=== PATIENT | female | born 1935 | race Caucasian/White ===

== ENCOUNTER 2017-11-29 19:28 | Emergency (ER) | payer OTHER ==
[~2017-11-29] VITALS: Ht 157.5 cm; Wt 59.0 kg
[~2017-11-29 19:28] MED LIST: HYDCOR2.5B TOP; Naproxen375 M1 PO; TRIE10TC; VIT1CAPS12 PO
[2017-11-29] MEDS ORDERED: Keflex500 MG PO (23:12)
[2017-11-29 23:14] LABS: Source, Urine Catheter
[2017-11-29 23:19] LABS: Bilirubin, Urine Neg (Neg); Blood, Urine 3+ (Neg); Glucose Qualitative, Urine Neg (Neg); Ketones, Urine Neg (Neg); Leukocyte Esterase, Urine 3+ (Neg); Nitrite, Urine Pos (Neg); Protein, Urine 2+ (Neg); Specific Gravity, Urine 1.015 (1.003-1.022); Urobilinogen, Urine NORM (Normal)
[2017-11-29 23:22] LABS: Appearance, Urine Hazy (Clear); Color, Urine Yellow (P-Yellow)
[2017-11-29 23:28] LABS: Bacteria Many /hpf; Red Blood Cells, Urine 0-2 /hpf (0-2); Squamous Epithelial Cells Not Seen /hpf (Few); White Blood Cells, Urine TNTC /hpf (0-5)
== END 2017-11-30 00:48 | disposition home or self-care (01) ==
LOC: ER 19:28
PROVIDERS: Emergency Medicine
DX: N39.0 Urinary tract infection, site not specified (principal); Z79.899 Other long term (current) drug therapy; F03.90 Unspecified dementia, unspecified severity, without behavioral disturbance, psychotic disturbance, mood disturbance, and anxiety; Z87.891 Personal history of nicotine dependence
CPT/HCPCS: 51701; 81001; 87077; 87086; 87186; 99283

== ENCOUNTER → 2017-12-21 | Outpatient (CLI) | payer OTHER ==
[~2017-12-21] MED LIST changes: +Keflex500 MG PO
[2017-12-21 13:36] LABS: Alanine Aminotransfer (ALT/SGP 35 U/L (12-78); Albumin, Blood 3.2 g/dL (3.4-5.0); Albumin/Globulin Ratio 0.7 (0.8-1.8); Alk Phos 161 U/L (50-136); Anion Gap 9 mmol/L (6-16); Aspartate Aminotrans (AST/SGOT 41 U/L (12-37); Bilirubin, Total 0.4 mg/dL (0.1-1.0); Blood Urea Nitrogen 16 mg/dL (8-24); Bun/Creatinine Ratio 26.1 (12.0-20.0); CO2, Blood 28 mmol/L (21-32); Calcium, Blood 8.3 mg/dL (8.5-10.1); Chloride, Blood 103 mmol/L (98-108); Creatinine, Blood 0.61 mg/dL (0.40-1.00); Free Thyroxine 1.02 ng/dL (0.70-1.60); Globulin, Blood 4.4 g/dL (2.2-4.0); Glomerular Filtration Rate >60 (60-); Glucose, Blood 112 mg/dL (70-99); Potassium, Blood 3.8 mmol/L (3.5-5.5); Sodium, Blood 140 mmol/L (136-145); Total Protein, Blood 7.6 g/dL (6.4-8.2)
== END | disposition home or self-care (01) ==
LOC: LAB 10:01
PROVIDERS: Hospitalist
DX: E03.9 Hypothyroidism, unspecified (principal)
CPT/HCPCS: 80053; 84439; 84443

== ENCOUNTER → 2018-03-13 | Outpatient (CLI) | payer OTHER ==
[2018-03-13 12:50] LABS: Bilirubin, Urine Neg (Neg); Blood, Urine 1+ (Neg); Glucose Qualitative, Urine Neg (Neg); Ketones, Urine Neg (Neg); Leukocyte Esterase, Urine 3+ (Neg); Nitrite, Urine Pos (Neg); Protein, Urine 2+ (Neg); Urobilinogen, Urine NORM (Normal)
[2018-03-13 13:19] LABS: Appearance, Urine Cloudy (Clear); Color, Urine Yellow (P-Yellow)
[2018-03-13 13:21] LABS: White Blood Cells, Urine 50-100 /hpf (0-5)
[2018-03-13 13:24] LABS: Bacteria Few /hpf
[2018-03-13 13:25] LABS: Renal Epithelial Rare /hpf (0-Rare); Squamous Epithelial Cells Rare /hpf (Few)
== END | disposition home or self-care (01) ==
LOC: LAB SHORT 10:45
PROVIDERS: Hospitalist
DX: N39.0 Urinary tract infection, site not specified (principal)
CPT/HCPCS: 81001; 87077; 87086; 87186

== ENCOUNTER → 2018-10-16 | Outpatient (CLI) | payer OTHER ==
[~2018-10-16] MED LIST changes: +LEVSOD50 PO; +MELA3 PO; +MIRT15 PO; +NAPR500 PO; +Refresh Eye Dr1 EACH BOTHEYES
[2018-10-16 19:27] LABS: Appearance, Urine Hazy (Clear); Bilirubin, Urine Neg (Neg); Blood, Urine 5+ (Neg); Color, Urine Yellow (P-Yellow); Glucose Qualitative, Urine Neg (Neg); Ketones, Urine 1+ (Neg); Leukocyte Esterase, Urine 3+ (Neg); Nitrite, Urine Pos (Neg); Protein, Urine 2+ (Neg); Urobilinogen, Urine NORM (Normal)
[2018-10-16 19:45] LABS: White Blood Cells, Urine 25-50 /hpf (0-5)
[2018-10-16 19:46] LABS: Bacteria Many /hpf; Squamous Epithelial Cells Rare /hpf (Few)
== END | disposition home or self-care (01) ==
LOC: LAB SHORT 18:53 → LAB 18:53
PROVIDERS: Hospitalist
DX: N39.0 Urinary tract infection, site not specified (principal)
CPT/HCPCS: 81001; 87077; 87086; 87186

== ENCOUNTER 2018-11-23 13:05 | Inpatient (IN) | payer OTHER ==
[~2018-11-23] VITALS: Ht 154.9 cm; Wt 49.0 kg
[~2018-11-23 13:05] MED LIST changes: -LEVSOD50 PO; -MELA3 PO; -MIRT15 PO; -NAPR500 PO; -Refresh Eye Dr1 EACH BOTHEYES
[2018-11-23] MEDS ORDERED: LEVSOD50 PO (13:21)
[2018-11-23] MEDS ORDERED: MIRT15 PO (13:22)
[2018-11-23] MEDS ORDERED: MELA3 PO (13:22)
[2018-11-23] MEDS ORDERED: NAPR500 PO (13:23)
[2018-11-23 14:16] LABS: BASOPHILS ABSOLUTE AUTO 0.04 K/mm3 (0.00-0.23); BASOPHILS PERCENT AUTO 1 % (0-2); EOSINOPHILS ABSOLUTE AUTO 0.03 K/mm3 (0.00-0.68); EOSINOPHILS PERCENT AUTO 1 % (0-6); Hematocrit 39.6 % (33.0-51.0); Hemoglobin 12.4 g/dL (11.5-16.0); IMMATURE GRAN ABSOLUTE AUTO 0.07 K/mm3 (0.00-0.10); IMMATURE GRAN PERCENT AUTO 1 % (0-1); LYMPHOCYTES ABSOLUTE AUTO 1.44 K/mm3 (0.84-5.20); LYMPHOCYTES PERCENT AUTO 28 % (21-46); MONOCYTES ABSOLUTE AUTO 0.58 K/mm3 (0.16-1.47); MONOCYTES PERCENT AUTO 11 % (4-13); Mean Corpuscular HGB 30.2 pg (26.0-34.0); Mean Corpuscular HGB Conc 31.3 g/dL (31.5-36.5); Mean Corpuscular Volume 96 fL (80-100); Mean Platelet Volume 10.8 fL (9.1-12.4); NEUTROPHILS ABSOLUTE AUTO 2.99 K/mm3 (1.96-9.15); NEUTROPHILS PERCENT AUTO 58 % (41-73); Platelet Count 212 K/mm3 (150-400); RDW Coefficient Variation 14.8 % (11.7-14.2); RDW Standard Deviation 52.8 fL (35.1-46.3); Red Blood Cell Count 4.11 M/mm3 (3.80-5.20); White Blood Cell Count 5.15 K/mm3 (4.00-11.30)
[2018-11-23 15:10] LABS: Alanine Aminotransfer (ALT/SGP 75 U/L (12-78); Albumin, Blood 3.5 g/dL (3.4-5.0); Albumin/Globulin Ratio 1.1 (0.8-1.8); Alk Phos 64 U/L (50-136); Anion Gap 6 mmol/L (6-16); Aspartate Aminotrans (AST/SGOT 54 U/L (12-37); Bilirubin, Total 0.7 mg/dL (0.1-1.0); Blood Urea Nitrogen 20 mg/dL (8-24); Bun/Creatinine Ratio 26.5 (12.0-20.0); CO2, Blood 31 mmol/L (21-32); Calcium, Blood 8.1 mg/dL (8.5-10.1); Chloride, Blood 106 mmol/L (98-108); Creatinine, Blood 0.76 mg/dL (0.40-1.00); Globulin, Blood 3.3 g/dL (2.2-4.0); Glomerular Filtration Rate >60 (60-); Glucose, Blood 138 mg/dL (70-99); Potassium, Blood 3.7 mmol/L (3.5-5.5); Sodium, Blood 143 mmol/L (136-145); Total Protein, Blood 6.8 g/dL (6.4-8.2)
[2018-11-23] MEDS ORDERED: Refresh Eye Dr1 EACH BOTHEYES (16:48)
--- NOTE | 2018-11-23 18:41 | NUR ---
SUMMARY PT ARRIVED TO UNIT FROM ER THIS AFTERNOON. RLE SHORTENED AND EXTERNALLY ROTATED. PT RESTING RUE ACROSS CHEST. DAUGHTER TO FLOOR W/PT. LOVING AND ATTENTIVE. PT FORGETFUL/HAS DEMENTIA. DR LOVE IN THIS EVENING. SURGICAL CONSENT SIGNED. PLAN FOR SURGERY TOMORROW AM. BED ALARM ON. STUART CATH DRAINING CLOUDY YELLOW URINE.
--- NOTE | 2018-11-23 18:45 | NUR ---
recvd report from previous shift rn minerva, pt in bed with bed alarm on, call light within reach, bed in lowest position, daughter in room, pt confused per baseline
[2018-11-23 18:52] LABS: Source, Urine Catheter
[2018-11-23 19:00] LABS: Appearance, Urine Cloudy (Clear); Bilirubin, Urine Neg (Neg); Blood, Urine 5+ (Neg); Color, Urine Yellow (P-Yellow); Glucose Qualitative, Urine Neg (Neg); Ketones, Urine 3+ (Neg); Leukocyte Esterase, Urine 3+ (Neg); Nitrite, Urine Pos (Neg); Protein, Urine 2+ (Neg); Specific Gravity, Urine 1.015 (1.003-1.022); Urobilinogen, Urine 1+ (Normal)
[2018-11-23 19:05] LABS: Bacteria Many /hpf; Squamous Epithelial Cells Not Seen /hpf (Few); White Blood Cells, Urine TNTC /hpf (0-5)
--- NOTE | 2018-11-24 04:36 | NUR ---
SHIFT SUMMARY: VSS, NO ACUTE CHANGES, PT REMAINED NPO AFTER 0000, IV FLUIDS INFUSING. PT REPOSITIONED Q2 T/O SHIFT, STUART REMAINED PATENT/DRAINING DARK YELLOW URINE. PT RECEIVED ANALGESIA PER MAR, WAS ABLE TO FALL ASLEEP BETWEEN ADMINISTRATIONS. PULSES/WARMTH/COLOR TO AFFECTED LIMB INTACT. PT REMAINED CONFUSED PER HER HER BASELINE, COOPERATIVE/PLEASANT.
[2018-11-24 04:50] LABS: BASOPHILS ABSOLUTE AUTO 0.02 K/mm3 (0.00-0.23); BASOPHILS PERCENT AUTO 0 % (0-2); EOSINOPHILS PERCENT AUTO 0 % (0-6); Hemoglobin 10.1 g/dL (11.5-16.0); IMMATURE GRAN ABSOLUTE AUTO 0.03 K/mm3 (0.00-0.10); IMMATURE GRAN PERCENT AUTO 0 % (0-1); LYMPHOCYTES ABSOLUTE AUTO 1.32 K/mm3 (0.84-5.20); LYMPHOCYTES PERCENT AUTO 14 % (21-46); MONOCYTES ABSOLUTE AUTO 0.86 K/mm3 (0.16-1.47); MONOCYTES PERCENT AUTO 9 % (4-13); Mean Corpuscular HGB 29.8 pg (26.0-34.0); Mean Corpuscular HGB Conc 31.6 g/dL (31.5-36.5); Mean Corpuscular Volume 94 fL (80-100); Mean Platelet Volume 11.3 fL (9.1-12.4); NEUTROPHILS ABSOLUTE AUTO 7.36 K/mm3 (1.96-9.15); NEUTROPHILS PERCENT AUTO 77 % (41-73); Platelet Count 172 K/mm3 (150-400); RDW Coefficient Variation 14.9 % (11.7-14.2); RDW Standard Deviation 52.2 fL (35.1-46.3); Red Blood Cell Count 3.39 M/mm3 (3.80-5.20); White Blood Cell Count 9.59 K/mm3 (4.00-11.30)
[2018-11-24 05:12] LABS: Anion Gap 7 mmol/L (6-16); Blood Urea Nitrogen 25 mg/dL (8-24); Bun/Creatinine Ratio 32.4 (12.0-20.0); CO2, Blood 26 mmol/L (21-32); Calcium, Blood 8.2 mg/dL (8.5-10.1); Chloride, Blood 109 mmol/L (98-108); Creatinine, Blood 0.77 mg/dL (0.40-1.00); Glomerular Filtration Rate >60 (60-); Glucose, Blood 122 mg/dL (70-99); Potassium, Blood 3.9 mmol/L (3.5-5.5); Sodium, Blood 142 mmol/L (136-145)
--- NOTE | 2018-11-24 11:50 | NUR ---
PT ARRIVED BACK TO THE ROOM POST-OP AT APPROXIMATELY 1140. PT IS DROWSY BUT AWAKENS WHEN SPOKEN TO AND FOLLOWS DIRECTIONS. DRESSING TO R HIP C/D/I. PT APPEARS TO BE RESTING COMFORTABLY AND DENIES PAIN. VSS. WILL MONITOR UNTIL REPORT TO ONCOMING RN.
--- NOTE | 2018-11-24 17:21 | NUR ---
SHIFT SUMMARY PT HAS RESTED COMFORTABLY POST-OP. VSS. FAMILY HAS BEEN AT THE BEDSIDE. WILL MONITOR UNTIL REPORT TO ONCOMING RN.
[2018-11-25 04:51] LABS: BASOPHILS ABSOLUTE AUTO 0.03 K/mm3 (0.00-0.23); BASOPHILS PERCENT AUTO 0 % (0-2); EOSINOPHILS ABSOLUTE AUTO 0.01 K/mm3 (0.00-0.68); EOSINOPHILS PERCENT AUTO 0 % (0-6); Hematocrit 24.9 % (33.0-51.0); Hemoglobin 7.9 g/dL (11.5-16.0); IMMATURE GRAN ABSOLUTE AUTO 0.04 K/mm3 (0.00-0.10); IMMATURE GRAN PERCENT AUTO 0 % (0-1); LYMPHOCYTES ABSOLUTE AUTO 2.42 K/mm3 (0.84-5.20); LYMPHOCYTES PERCENT AUTO 20 % (21-46); MONOCYTES ABSOLUTE AUTO 1.45 K/mm3 (0.16-1.47); MONOCYTES PERCENT AUTO 12 % (4-13); Mean Corpuscular HGB 30.6 pg (26.0-34.0); Mean Corpuscular HGB Conc 31.7 g/dL (31.5-36.5); Mean Platelet Volume 11.1 fL (9.1-12.4); NEUTROPHILS PERCENT AUTO 68 % (41-73); Platelet Count 126 K/mm3 (150-400); RDW Coefficient Variation 14.9 % (11.7-14.2); RDW Standard Deviation 52.8 fL (35.1-46.3); Red Blood Cell Count 2.58 M/mm3 (3.80-5.20); White Blood Cell Count 12.25 K/mm3 (4.00-11.30)
[2018-11-25 04:53] LABS: Mean Corpuscular Volume 97 fL (80-100)
[2018-11-25 05:21] LABS: Magnesium, Blood 1.8 mg/dL (1.6-2.4)
[2018-11-25 05:22] LABS: Anion Gap 8 mmol/L (6-16); Blood Urea Nitrogen 15 mg/dL (8-24); CO2, Blood 25 mmol/L (21-32); Calcium, Blood 7.7 mg/dL (8.5-10.1); Chloride, Blood 109 mmol/L (98-108); Creatinine, Blood 0.65 mg/dL (0.40-1.00); Glomerular Filtration Rate >60 (60-); Glucose, Blood 117 mg/dL (70-99); Potassium, Blood 4.2 mmol/L (3.5-5.5); Sodium, Blood 142 mmol/L (136-145)
--- NOTE | 2018-11-25 05:22 | NUR ---
LYING IN SEMI FOWLERS WITH EYES CLOSED. HAD DENIED PAIN EACH TIME SHE HAS BEEN ASKED. FREQUENTLY REPOSITIONED FOR COMFORT, CONTINUES TO END UP LEANING TO HER RIGHT. RIGHT ARM IN SLING, GOOD DISTAL PULSES NOTED. RIGHT HIP DRESSING IS C/D/I WITH GOOD DISTAL PULSES NOTED. LEFT AC 20G PIV NOTED HAVING BEEN WORKED LOOSE WITH CATH TIP INTACT. DENIES FUTHER NEEDS AT THIS TIME. SAFETY MEASURES IN PLACE. WILL GIVE HAND OFF TO ONCOMING SHIFT USING SBAR.
--- NOTE | 2018-11-25 06:15 | NUR ---
STUART CATH REMOVED WITH TIP INTACT. WILLIAM CARE PERFORMED, TOLERATED WELL. SAFETY MEASURES IN PLACE. WILL CONTINUE TO MONITOR.
--- NOTE | 2018-11-25 11:34 | NUR ---
Patient was sitting in a chair and alert when I entered the room. I introduced myself and patient welcomed me to sit down. Patient seemed somewhat confused but was still able to communicate. Patient did not expressed any emotional/spiritual needs. I conducted a brief life/family review, provided companionship, explored patient's belief system and provided prayer. Patient responded well to all inverventions and displayed evidence of elevated mood.
--- NOTE | 2018-11-25 18:30 | NUR ---
SHIFT SUMMARY PT EATING AND DRINKING WELL. PT VOIDING IN ATTENDS. PT TO CHAIR WITH THERAPY. PT FAMILY IN ROOM EARLIER TODAY. TAB ALARM IN PLACE. PT BEEN UP IN CHAIR MOST OF DAY. PT MED FOR PAIN PER PT REQ, OFFERED MULT TIMES. PT REFUSING TO HAVE ICE TO HIP OR SHOULDER. R ARM IN SLING.
--- NOTE | 2018-11-25 21:01 | NUR ---
18G PERIPHERAL IV PATENT IN LEFT WRIST; FLUSHED WITH 10ML NS AND WRAPPED WITH COBAN TO PROTECT.
--- NOTE | 2018-11-26 05:39 | NUR ---
SUMMARY: POD 1 RIGHT HIP GAMMA NAILING, WITH RIGHT HUMEROUS FX BY DR. LOVE. VSS, AFEBRILE, PT MINIMALLY PAINFUL AND MEDICATED WITH TYLENOL @ HS. TOLERATING PO INTAKE WELL AND DRINKING LOTS OF WATER @ BEDSIDE. PT PULLED DRESSING FROM RIGHT HIP AND RN CLEANSED AREA AND REAPPLIED IODOFOAM, GAUZE AND FOAM PRESSURE TAPE. ANTICIPATE RETURN TO [facility] PT'S HOME FACILITY.
[2018-11-26 05:42] LABS: BASOPHILS ABSOLUTE AUTO 0.04 K/mm3 (0.00-0.23); BASOPHILS PERCENT AUTO 0 % (0-2); EOSINOPHILS ABSOLUTE AUTO 0.05 K/mm3 (0.00-0.68); EOSINOPHILS PERCENT AUTO 1 % (0-6); Hematocrit 24.7 % (33.0-51.0); Hemoglobin 7.7 g/dL (11.5-16.0); IMMATURE GRAN ABSOLUTE AUTO 0.04 K/mm3 (0.00-0.10); IMMATURE GRAN PERCENT AUTO 0 % (0-1); LYMPHOCYTES ABSOLUTE AUTO 2.79 K/mm3 (0.84-5.20); LYMPHOCYTES PERCENT AUTO 26 % (21-46); MONOCYTES ABSOLUTE AUTO 1.44 K/mm3 (0.16-1.47); MONOCYTES PERCENT AUTO 13 % (4-13); Mean Corpuscular HGB 30.6 pg (26.0-34.0); Mean Corpuscular HGB Conc 31.2 g/dL (31.5-36.5); Mean Corpuscular Volume 98 fL (80-100); Mean Platelet Volume 11.3 fL (9.1-12.4); NEUTROPHILS ABSOLUTE AUTO 6.52 K/mm3 (1.96-9.15); NEUTROPHILS PERCENT AUTO 60 % (41-73); Platelet Count 142 K/mm3 (150-400); RDW Standard Deviation 54.2 fL (35.1-46.3); Red Blood Cell Count 2.52 M/mm3 (3.80-5.20); White Blood Cell Count 10.88 K/mm3 (4.00-11.30)
--- NOTE | 2018-11-26 07:00 | NUR ---
REPORT RECEVED FROM TAMI RN. ASSUMED PT CARE.
--- NOTE | 2018-11-26 07:05 | NUR ---
PT APPEARS TO BE SLEEPING. NADN. WILL CONT TO MONITOR.
--- NOTE | 2018-11-26 07:15 | NUR ---
DR LOVE TO ROOM FOR RE-EVAL AND DRESSING CHANGED. INCISIONS ARE WELL APPEARING, NO S/S INFEXTION. PT TOLERATED ROLLING WELL. WATER PROVIDED.
--- NOTE | 2018-11-26 09:15 | NUR ---
PT SITTING UP IN CHAIR WITH MULT ASSIST. PT MEDICATED PER EMAR. TOLERATED PILLS WITHOUT ISSUE. BLANKET OVER LAP. LIGHTS DIMMED.
--- NOTE | 2018-11-26 10:55 | NUR ---
PT FAMILY TO BEDSIDE. AWAITING SCRIPT FROM DR BERGER. WILL GET PT DC HOME TO [facility].
--- NOTE | 2018-11-26 12:30 | NUR ---
DC RIDE TO UNIT. ASSISTED PT TO WC, IV REMOVED. BELONGINGS SENT WITH PT.
== END 2018-11-26 12:34 | disposition home or self-care (01) | DRG 481 ==
LOC: ER 13:05 → SURS 16:17 → ER 16:30 → SURS 17:02
PROVIDERS: Emergency Medicine; Hospitalist; Orthopaedic Surgery; ADMIT Family Medicine
PROC: 0QS606Z Reposition Right Upper Femur with Intramedullary Internal Fixation Device, Open Approach (ICD-10-PCS; principal; 2018-11-24 09:00)
DX: S72.141A Displaced intertrochanteric fracture of right femur, initial encounter for closed fracture (principal); S42.201A Unspecified fracture of upper end of right humerus, initial encounter for closed fracture; N39.0 Urinary tract infection, site not specified; D62 Acute posthemorrhagic anemia; E03.9 Hypothyroidism, unspecified; Z66 Do not resuscitate; G47.00 Insomnia, unspecified; W19.XXXA Unspecified fall, initial encounter; G30.9 Alzheimer's disease, unspecified; F02.80 Dementia in other diseases classified elsewhere, unspecified severity, without behavioral disturbance, psychotic disturbance, mood disturbance, and anxiety; Z87.891 Personal history of nicotine dependence
CPT/HCPCS: 36415; 51702; 71045; 73030; 73502; 80048; 80053; 81001; 83735; 85025; 87077; 87086; 87186; 93005; 93010; 96374-59; 97162; 97530; 99285-25; C1713; C1769; J0690; J1100; J1650; J1885; J2370; J2405; J3010; J7030

== ENCOUNTER → 2018-12-05 | Outpatient (CLI) | payer OTHER ==
[~2018-12-05] MED LIST changes: +LEVSOD50 PO; +MELA3 PO; +MIRT15 PO; +NAPR500 PO; +Refresh Eye Dr1 EACH BOTHEYES
[2018-12-05 18:20] LABS: BASOPHILS ABSOLUTE AUTO 0.04 K/mm3 (0.00-0.23); BASOPHILS PERCENT AUTO 1 % (0-2); EOSINOPHILS ABSOLUTE AUTO 0.06 K/mm3 (0.00-0.68); EOSINOPHILS PERCENT AUTO 1 % (0-6); Hematocrit 31.1 % (33.0-51.0); Hemoglobin 9.2 g/dL (11.5-16.0); IMMATURE GRAN ABSOLUTE AUTO 0.07 K/mm3 (0.00-0.10); IMMATURE GRAN PERCENT AUTO 1 % (0-1); LYMPHOCYTES PERCENT AUTO 11 % (21-46); MONOCYTES ABSOLUTE AUTO 0.67 K/mm3 (0.16-1.47); MONOCYTES PERCENT AUTO 8 % (4-13); Mean Corpuscular HGB 30.9 pg (26.0-34.0); Mean Corpuscular HGB Conc 29.6 g/dL (31.5-36.5); Mean Platelet Volume 10.6 fL (9.1-12.4); NEUTROPHILS PERCENT AUTO 79 % (41-73); Platelet Count 520 K/mm3 (150-400); RDW Coefficient Variation 17.9 % (11.7-14.2); RDW Standard Deviation 66.4 fL (35.1-46.3); Red Blood Cell Count 2.98 M/mm3 (3.80-5.20); White Blood Cell Count 8.84 K/mm3 (4.00-11.30)
[2018-12-05 18:27] LABS: Mean Corpuscular Volume 104 fL (80-100)
[2018-12-05 18:51] LABS: Alanine Aminotransfer (ALT/SGP 44 U/L (12-78); Albumin, Blood 3.4 g/dL (3.4-5.0); Albumin/Globulin Ratio 1.1 (0.8-1.8); Alk Phos 78 U/L (50-136); Anion Gap 6 mmol/L (6-16); Aspartate Aminotrans (AST/SGOT 45 U/L (12-37); Bilirubin, Total 1.7 mg/dL (0.1-1.0); Blood Urea Nitrogen 24 mg/dL (8-24); Bun/Creatinine Ratio 52.9 (12.0-20.0); CO2, Blood 29 mmol/L (21-32); Calcium, Blood 8.3 mg/dL (8.5-10.1); Chloride, Blood 107 mmol/L (98-108); Creatinine, Blood 0.45 mg/dL (0.40-1.00); Globulin, Blood 3.2 g/dL (2.2-4.0); Glomerular Filtration Rate >60 (60-); Glucose, Blood 114 mg/dL (70-99); Potassium, Blood 3.8 mmol/L (3.5-5.5); Sodium, Blood 142 mmol/L (136-145); Total Protein, Blood 6.6 g/dL (6.4-8.2)
== END | disposition home or self-care (01) ==
LOC: LAB SHORT 15:44 → LAB 15:44
PROVIDERS: Hospitalist
DX: D62 Acute posthemorrhagic anemia (principal); I95.9 Hypotension, unspecified
CPT/HCPCS: 80053; 85025

== ENCOUNTER 2019-01-03 18:35 | Observation (INO) | payer OTHER ==
[~2019-01-03] VITALS: Ht 154.9 cm; Wt 46.0 kg
[2019-01-03 19:36] LABS: BASOPHILS ABSOLUTE AUTO 0.03 K/mm3 (0.00-0.23); BASOPHILS PERCENT AUTO 0 % (0-2); EOSINOPHILS ABSOLUTE AUTO 0.02 K/mm3 (0.00-0.68); EOSINOPHILS PERCENT AUTO 0 % (0-6); Hemoglobin 12.7 g/dL (11.5-16.0); IMMATURE GRAN ABSOLUTE AUTO 0.03 K/mm3 (0.00-0.10); IMMATURE GRAN PERCENT AUTO 0 % (0-1); LYMPHOCYTES ABSOLUTE AUTO 1.41 K/mm3 (0.84-5.20); LYMPHOCYTES PERCENT AUTO 13 % (21-46); MONOCYTES ABSOLUTE AUTO 1.22 K/mm3 (0.16-1.47); MONOCYTES PERCENT AUTO 11 % (4-13); Mean Corpuscular HGB Conc 30.2 g/dL (31.5-36.5); Mean Corpuscular Volume 102 fL (80-100); Mean Platelet Volume 10.8 fL (9.1-12.4); NEUTROPHILS ABSOLUTE AUTO 8.41 K/mm3 (1.96-9.15); NEUTROPHILS PERCENT AUTO 76 % (41-73); Platelet Count 279 K/mm3 (150-400); RDW Coefficient Variation 14.4 % (11.7-14.2); RDW Standard Deviation 54.5 fL (35.1-46.3); White Blood Cell Count 11.12 K/mm3 (4.00-11.30)
[2019-01-03 19:56] LABS: Alanine Aminotransfer (ALT/SGP 18 U/L (12-78); Albumin, Blood 2.9 g/dL (3.4-5.0); Albumin/Globulin Ratio 0.7 (0.8-1.8); Alk Phos 138 U/L (50-136); Anion Gap 4 mmol/L (6-16); Aspartate Aminotrans (AST/SGOT 18 U/L (12-37); Bilirubin, Total 0.3 mg/dL (0.1-1.0); Blood Urea Nitrogen 22 mg/dL (8-24); CO2, Blood 29 mmol/L (21-32); Calcium, Blood 8.5 mg/dL (8.5-10.1); Chloride, Blood 105 mmol/L (98-108); Creatinine, Blood 0.48 mg/dL (0.40-1.00); Glomerular Filtration Rate >60 (60-); Glucose, Blood 146 mg/dL (70-99); Potassium, Blood 3.7 mmol/L (3.5-5.5); Sodium, Blood 138 mmol/L (136-145); Total Protein, Blood 6.9 g/dL (6.4-8.2)
[2019-01-04 02:06] LABS: Hematocrit 40.2 % (33.0-51.0); Hemoglobin 12.5 g/dL (11.5-16.0)
--- NOTE | 2019-01-04 07:24 | NUR ---
a orintated to self, infusing with no s/sx of infection or infiltration noted at site, call light in reach, room air, walking rounds completed with day staff
[2019-01-04 07:51] LABS: Hematocrit 40.2 % (33.0-51.0); Hemoglobin 12.1 g/dL (11.5-16.0)
[2019-01-04] MEDS ORDERED: PANT40 PO (15:11)
[2019-01-04] MEDS ORDERED: ACET325 PO (15:12)
--- NOTE | 2019-01-04 15:51 | NUR ---
TRANSFER/DISCHARGE NOTE CALLED [facility]. GAVE HANDOFF REPORT. GAVE INFORMATION REGARDING PT'S MEDICATIONS, DIAGNOSES, VITALS, AND CONDITION. TRANSPORT TO [facility] WAS ARRANGED AND ARRIVED TO ESCORT THE PT VIA WHEELCHAIR. DISCHARGE MEDICATION LIST FAXED TO [facility]. IV DC'D WNL. PT'S PERSONAL POSSESSIONS BAGGED AND GIVEN TO PT. NURSE AGUILAR HAD NO FURTHER QUESTIONS.
== END 2019-01-04 15:46 | disposition home or self-care (01) ==
LOC: ER 18:35 → MEDS 18:36 → ER 20:24 → MEDS 21:33
PROVIDERS: Emergency Medicine; ADMIT Hospitalist
DX: K92.2 Gastrointestinal hemorrhage, unspecified (principal); G30.9 Alzheimer's disease, unspecified; F02.80 Dementia in other diseases classified elsewhere, unspecified severity, without behavioral disturbance, psychotic disturbance, mood disturbance, and anxiety; E03.9 Hypothyroidism, unspecified; Z87.81 Personal history of (healed) traumatic fracture; Z87.891 Personal history of nicotine dependence; Z79.899 Other long term (current) drug therapy
CPT/HCPCS: 36415; 80053; 85014; 85018; 85025; 96365; 96375; 99285-25; C9113; G0378; J2405; J7120

== ENCOUNTER 2019-01-05 20:41 | Emergency (ER) | payer OTHER ==
[~2019-01-05] VITALS: Ht 152.4 cm; Wt 40.8 kg
[~2019-01-05 20:41] MED LIST changes: +ACET325 PO; +PANT40 PO
[2019-01-05 23:50] LABS: Chloride (POC) 101 mmol/L (98-108); Creatinine (POC) 0.5 mg/dL (0.6-1.0); Glucose (ISTAT POC) 111 mg/dL (70-99); Hemoglobin (POC) 14.6 g/dL (12.0-16.0); Potassium (POC) 4.2 mmol/L (3.5-5.5); Sodium (POC) 140 mmol/L (135-148); Total CO2 (POC) 31 mmol/L (21-32)
== END 2019-01-06 00:50 | disposition home or self-care (01) ==
LOC: ER 20:41
PROVIDERS: Emergency Medicine
DX: K56.41 Fecal impaction (principal); K92.2 Gastrointestinal hemorrhage, unspecified; Z79.899 Other long term (current) drug therapy; F03.90 Unspecified dementia, unspecified severity, without behavioral disturbance, psychotic disturbance, mood disturbance, and anxiety; Z87.891 Personal history of nicotine dependence
CPT/HCPCS: 80047; 85014; 99283

== ENCOUNTER 2019-01-09 13:05 | Emergency (ER) | payer OTHER ==
[~2019-01-09] VITALS: Ht 154.9 cm; Wt 45.4 kg
[2019-01-09 15:25] LABS: Calcium, Ionized (POC) 1.04 mmol/L (1.10-1.46); Chloride (POC) 101 mmol/L (98-108); Creatinine (POC) 0.5 mg/dL (0.6-1.0); Glucose (ISTAT POC) 92 mg/dL (70-99); Hemoglobin (POC) 11.2 g/dL (12.0-16.0); Potassium (POC) 3.8 mmol/L (3.5-5.5); Sodium (POC) 138 mmol/L (135-148); Total CO2 (POC) 28 mmol/L (21-32)
--- NOTE | 2019-01-09 16:43 | NUR ---
Initial Visit: ED Palliative Care Consult for Goals of Care. Spoke with Dr Paula and he reports Pt and family would benefit from a palliative visit. Pt is pleasantly confused, A&Ox1. She appears comfortable and denies pain at this time. PAINAD score is 0/10. Pt's daughter Anne-Marie is present during visit. Engaged in therapeutic conversation regarding goals of care. Asked Anne-Marie if POLST on file is still Pt and family wishes. Anne-Marie confirms current POLST is correct. POLST states DNR, Comfort Measures only, Antibiotics Only If Necessary, and No Artificial Nutrition By Tube. Anne-Marie reports staff at [facility] became anxious due to blood present in Pt's stool and sent Pt to the ED. Anne-Marie reports the Pt did not exhibit any signs of distress and was not wanting Pt to be sent to the hospital. Anne-Marie reports that her goal is to maintain Pt's wishes and wants the Pt to be comfortable and allow her to pass away naturally at home. Anne-Marie reports the Pt's quality of life has declined significantly and is no longer able to enjoy the things she used to do such as outings. Anne-Marie reports the Pt can not ambulate, requires assistance with transfers, assistance with bathing and dressing, and is incontinent of bowel and bladder. Discussed hospice and educated Anne-Marie on hospice philosophy with V/U made by Anne-Marie. Anne-Marie would like a little time to think about options and states the Pt has an appointment with Dr Salas tomorrow and will discuss this option further with her. Anne-Marie is agreeable for Pt to be discharged from ED to go back home to [facility]. Called and spoke with Ashwini at [facility] and gave her report of plan and wishes of Pt and family with V/U made by Ashwini. Plan: Pt will discharge from ED back to [facility]. Anne-Marie is considering options. Will remain available. Left contact information with Anne-Marie.
== END 2019-01-09 17:46 | disposition home or self-care (01) ==
LOC: ER 13:05
PROVIDERS: Emergency Medicine
DX: K92.1 Melena (principal); F03.90 Unspecified dementia, unspecified severity, without behavioral disturbance, psychotic disturbance, mood disturbance, and anxiety; Z79.899 Other long term (current) drug therapy; Z87.891 Personal history of nicotine dependence
CPT/HCPCS: 80047; 85014; 99284

== ENCOUNTER → 2019-09-03 | Outpatient (CLI) | payer OTHER ==
[2019-09-03 20:15] LABS: Bilirubin, Urine Neg (Neg); Blood, Urine 1+ (Neg); Glucose Qualitative, Urine Neg (Neg); Ketones, Urine Neg (Neg); Leukocyte Esterase, Urine 3+ (Neg); Nitrite, Urine Pos (Neg); Protein, Urine Neg (Neg); Urobilinogen, Urine 1+ (Normal)
[2019-09-03 20:26] LABS: Appearance, Urine Hazy (Clear); Color, Urine Yellow (P-Yellow)
[2019-09-03 20:27] LABS: Bacteria Many /hpf; Mucus Light (0-Heavy); Red Blood Cells, Urine 0-2 /hpf (0-2); Squamous Epithelial Cells Few /hpf (Few)
== END | disposition home or self-care (01) ==
LOC: LAB SHORT 17:54 → LAB 17:54
PROVIDERS: Hospitalist
DX: N39.0 Urinary tract infection, site not specified (principal)
CPT/HCPCS: 81001; 87077; 87086; 87186

== ENCOUNTER → 2019-09-19 | Outpatient (CLI) | payer OTHER ==
[2019-09-19 15:52] LABS: Bilirubin, Urine Neg (Neg); Blood, Urine Neg (Neg); Glucose Qualitative, Urine Neg (Neg); Ketones, Urine Neg (Neg); Leukocyte Esterase, Urine 2+ (Neg); Nitrite, Urine Neg (Neg); Protein, Urine Neg (Neg); Urobilinogen, Urine 1+ (Normal)
[2019-09-19 16:11] LABS: Appearance, Urine Clear (Clear); Bacteria Few /hpf; Color, Urine Yellow (P-Yellow); Red Blood Cells, Urine 0-2 /hpf (0-2); Squamous Epithelial Cells Few /hpf (Few)
== END ==
LOC: LAB 13:00 → LAB SHORT 13:00
PROVIDERS: Hospitalist
DX: N39.0 Urinary tract infection, site not specified (principal)
CPT/HCPCS: 81001; 87086

== ENCOUNTER → 2019-10-27 | Outpatient (CLI) | payer OTHER ==
[2019-10-27 18:59] LABS: Source, Urine Clean Catch
[2019-10-27 19:42] LABS: Bilirubin, Urine Neg (Neg); Blood, Urine 2+ (Neg); Glucose Qualitative, Urine Neg (Neg); Ketones, Urine Neg (Neg); Leukocyte Esterase, Urine 3+ (Neg); Nitrite, Urine Neg (Neg); Protein, Urine 1+ (Neg); Specific Gravity, Urine 1.025 (1.003-1.022); Urobilinogen, Urine 1+ (Normal)
[2019-10-27 19:45] LABS: Appearance, Urine Hazy (Clear); Color, Urine Yellow (P-Yellow)
[2019-10-27 19:50] LABS: Amorphous Light (0-Heavy); Bacteria Many /hpf; Calcium Oxalate Crystals Few /hpf; Mucus Light (0-Heavy); Squamous Epithelial Cells Mod /hpf (Few)
== END | disposition home or self-care (01) ==
LOC: LAB SHORT 18:57 → LAB 18:57
PROVIDERS: Hospitalist
DX: N39.0 Urinary tract infection, site not specified (principal)
CPT/HCPCS: 81001; 87086

== ENCOUNTER → 2019-11-04 | Outpatient (CLI) | payer OTHER ==
[2019-11-04 11:01] LABS: Bilirubin, Urine Neg (Neg); Blood, Urine Neg (Neg); Glucose Qualitative, Urine Neg (Neg); Ketones, Urine Neg (Neg); Leukocyte Esterase, Urine 1+ (Neg); Nitrite, Urine Neg (Neg); Protein, Urine Neg (Neg); Urobilinogen, Urine NORM (Normal)
[2019-11-04 11:13] LABS: Appearance, Urine Clear (Clear); Bacteria Not Seen /hpf; Color, Urine Yellow (P-Yellow); Red Blood Cells, Urine Not Seen /hpf (0-2); Squamous Epithelial Cells Few /hpf (Few)
== END ==
LOC: LAB SHORT 09:35 → LAB 09:35
PROVIDERS: Hospitalist
DX: N39.0 Urinary tract infection, site not specified (principal)
CPT/HCPCS: 81001; 87086

== ENCOUNTER → 2019-12-23 | Outpatient (CLI) | payer OTHER ==
[2019-12-23 20:18] LABS: BASOPHILS ABSOLUTE AUTO 0.04 K/mm3 (0.00-0.23); BASOPHILS PERCENT AUTO 1 % (0-2); EOSINOPHILS ABSOLUTE AUTO 0.08 K/mm3 (0.00-0.68); EOSINOPHILS PERCENT AUTO 1 % (0-6); Hematocrit 42.1 % (33.0-51.0); Hemoglobin 13.5 g/dL (11.5-16.0); IMMATURE GRAN ABSOLUTE AUTO 0.01 K/mm3 (0.00-0.10); IMMATURE GRAN PERCENT AUTO 0 % (0-1); LYMPHOCYTES PERCENT AUTO 31 % (21-46); MONOCYTES ABSOLUTE AUTO 0.78 K/mm3 (0.16-1.47); MONOCYTES PERCENT AUTO 14 % (4-13); Mean Corpuscular HGB 32.5 pg (26.0-34.0); Mean Corpuscular HGB Conc 32.1 g/dL (31.5-36.5); Mean Corpuscular Volume 101 fL (80-100); Mean Platelet Volume 12.4 fL (9.1-12.4); NEUTROPHILS ABSOLUTE AUTO 2.91 K/mm3 (1.96-9.15); NEUTROPHILS PERCENT AUTO 53 % (41-73); Platelet Count 211 K/mm3 (150-400); RDW Coefficient Variation 13.5 % (11.7-14.2); RDW Standard Deviation 50.9 fL (35.1-46.3); Red Blood Cell Count 4.16 M/mm3 (3.80-5.20); White Blood Cell Count 5.52 K/mm3 (4.00-11.30)
[2019-12-23 20:34] LABS: Free Thyroxine 1.02 ng/dL (0.70-1.60)
[2019-12-23 20:39] LABS: Anion Gap 3 mmol/L (6-16); Blood Urea Nitrogen 22 mg/dL (8-24); Bun/Creatinine Ratio 39.9 (12.0-20.0); CO2, Blood 30 mmol/L (21-32); Calcium, Blood 8.4 mg/dL (8.5-10.1); Chloride, Blood 107 mmol/L (98-108); Creatinine, Blood 0.55 mg/dL (0.40-1.00); Glomerular Filtration Rate >60 (60-); Glucose, Blood 93 mg/dL (70-99); Potassium, Blood 4.3 mmol/L (3.5-5.5); Sodium, Blood 140 mmol/L (136-145)
== END | disposition home or self-care (01) ==
LOC: LAB 18:09 → LAB SHORT 18:09
PROVIDERS: Hospitalist
DX: E03.9 Hypothyroidism, unspecified (principal); G30.9 Alzheimer's disease, unspecified; F02.81 Dementia in other diseases classified elsewhere, unspecified severity, with behavioral disturbance
CPT/HCPCS: 80048; 84439; 84443; 85025

== ENCOUNTER → 2020-02-24 | Outpatient (CLI) | payer OTHER ==
[2020-02-25 16:56] LABS: Bilirubin, Urine Neg (Neg); Blood, Urine Neg (Neg); Glucose Qualitative, Urine Neg (Neg); Ketones, Urine Neg (Neg); Leukocyte Esterase, Urine 1+ (Neg); Nitrite, Urine Neg (Neg); Protein, Urine Neg (Neg); Urobilinogen, Urine NORM (Normal); pH, Urine 6.5 (5.0-8.0)
[2020-02-25 17:11] LABS: Appearance, Urine Clear (Clear); Color, Urine Yellow (P-Yellow)
[2020-02-25 17:12] LABS: Red Blood Cells, Urine 0-2 /hpf (0-2); Squamous Epithelial Cells Few /hpf (Few)
[2020-02-25 17:13] LABS: Bacteria Rare /hpf
== END | disposition home or self-care (01) ==
LOC: LAB 14:08 → LAB SHORT 14:08
PROVIDERS: Hospitalist
DX: N39.0 Urinary tract infection, site not specified (principal)
CPT/HCPCS: 81001; 87086

== ENCOUNTER 2020-08-18 10:58 | Emergency (ER) | payer OTHER ==
[~2020-08-18] VITALS: Ht 152.4 cm; Wt 49.9 kg
[~2020-08-18 10:58] MED LIST changes: +Aspercreme 1035.4 GM TOP; +BISA10S PR; +Benzonatate100 MG PO; +Betamethasone V15 GM TOP; +FEROSUL325 M1 PO; +HYDCOR2.5C PR; +Halls Cough Dr1 EACH MM; +LEVSOD75 PO; +LOPERAMIDE2 M1 PO; +MELATONIN5 M1 PO; +Milk Of Ma400 MG/5 M PO; +Norco 5-325 Ta1 EACH PO; +QUET25 PO; +REFRESH OPTIVE10 M1 BOTHEYES; +SENNA LAXATIVE8.6 MG PO
[2020-08-18] MEDS ORDERED: ONDA4ODT MM (12:09)
== END 2020-08-18 14:09 | disposition home or self-care (01) ==
LOC: ER 10:58
DX: R11.2 Nausea with vomiting, unspecified (principal); R50.9 Fever, unspecified; E03.9 Hypothyroidism, unspecified; G30.9 Alzheimer's disease, unspecified; F02.80 Dementia in other diseases classified elsewhere, unspecified severity, without behavioral disturbance, psychotic disturbance, mood disturbance, and anxiety; Z51.5 Encounter for palliative care; Z79.899 Other long term (current) drug therapy
CPT/HCPCS: 82947; 99284

== ENCOUNTER → 2021-04-10 | Outpatient (CLI) | payer OTHER ==
[~2021-04-10] MED LIST changes: +ALCIS59.15 ML TOP; +ARTIFICIAL TEAR15 M2 BOTHEYES; +FERSU300 PO; +HYDR1TAB94 PO; +ONDA4ODT MM; +Seroquel Xr50 MG PO
[2021-04-11 17:42] LABS: Appearance, Urine Cloudy (Clear); Bilirubin, Urine Neg (Neg); Blood, Urine 3+ (Neg); Color, Urine Amber (P-Yellow); Glucose Qualitative, Urine Neg (Neg); Ketones, Urine Neg (Neg); Leukocyte Esterase, Urine 2+ (Neg); Nitrite, Urine Neg (Neg); Protein, Urine 1+ (Neg); Urobilinogen, Urine 2+ (Normal)
[2021-04-11 17:54] LABS: Bacteria Many /hpf; Red Blood Cells, Urine 0-2 /hpf (0-2); Squamous Epithelial Cells Few /hpf (Few); Triple Phosphate Crystals Few /hpf
== END | disposition home or self-care (01) ==
LOC: LAB SHORT 14:00 → LAB 14:00
PROVIDERS: Hospitalist
DX: N39.0 Urinary tract infection, site not specified (principal)
CPT/HCPCS: 81001; 87086

== ENCOUNTER 2021-04-14 17:10 | Emergency (ER) | payer OTHER ==
[~2021-04-14] VITALS: Ht 165.1 cm; Wt 49.9 kg
[~2021-04-14 17:10] MED LIST changes: -ALCIS59.15 ML TOP; -ARTIFICIAL TEAR15 M2 BOTHEYES; -FERSU300 PO; -HYDR1TAB94 PO; -Seroquel Xr50 MG PO
[2021-04-14] MEDS ORDERED: LEVSOD75 PO (18:39)
[2021-04-14] MEDS ORDERED: HYDR1TAB94 PO (18:39)
[2021-04-14] MEDS ORDERED: FERSU300 PO (18:39)
[2021-04-14] MEDS ORDERED: ALCIS59.15 ML TOP (18:39)
[2021-04-14] MEDS ORDERED: VIT1CAPS12 PO (18:40)
[2021-04-14] MEDS ORDERED: MIRT15 PO (18:40)
[2021-04-14] MEDS ORDERED: MELATONIN5 M1 PO (18:40)
[2021-04-14] MEDS ORDERED: Seroquel Xr50 MG PO (18:40)
[2021-04-14] MEDS ORDERED: ARTIFICIAL TEAR15 M2 BOTHEYES (18:41)
== END 2021-04-14 21:57 | disposition home or self-care (01) ==
LOC: ER 17:10
DX: S00.03XA Contusion of scalp, initial encounter (principal); E03.9 Hypothyroidism, unspecified; Z87.891 Personal history of nicotine dependence; Z79.899 Other long term (current) drug therapy; W01.10XA Fall on same level from slipping, tripping and stumbling with subsequent striking against unspecified object, initial encounter
CPT/HCPCS: 70450; 72170; 99284-25

== ENCOUNTER → 2021-04-20 | Outpatient (CLI) | payer OTHER ==
[~2021-04-20] MED LIST changes: +ALCIS59.15 ML TOP; +ARTIFICIAL TEAR15 M2 BOTHEYES; +FERSU300 PO; +HYDR1TAB94 PO; +Seroquel Xr50 MG PO
[2021-04-20 20:08] LABS: Bilirubin, Urine Neg (Neg); Blood, Urine 1+ (Neg); Glucose Qualitative, Urine Neg (Neg); Ketones, Urine Neg (Neg); Leukocyte Esterase, Urine 1+ (Neg); Nitrite, Urine Neg (Neg); Protein, Urine 1+ (Neg); Urobilinogen, Urine 1+ (Normal)
[2021-04-20 20:18] LABS: Appearance, Urine Hazy (Clear); Color, Urine Yellow (P-Yellow)
[2021-04-20 20:19] LABS: Bacteria Few /hpf; Mucus Light (0-Heavy); Red Blood Cells, Urine 0-2 /hpf (0-2); Squamous Epithelial Cells Few /hpf (Few)
== END | disposition home or self-care (01) ==
LOC: LAB SHORT 15:20 → LAB 15:20
PROVIDERS: Hospitalist
DX: N39.0 Urinary tract infection, site not specified (principal)
CPT/HCPCS: 81001; 87077; 87086; 87186

== ENCOUNTER → 2021-06-04 | Outpatient (CLI) | payer OTHER | END | disposition home or self-care (01) | LOC: LAB SHORT 12:15 → LAB 12:15 | DX: Z03.818 Encounter for observation for suspected exposure to other biological agents ruled out (principal) | CPT/HCPCS: U0003 ==

== ENCOUNTER 2021-06-06 16:04 | Emergency (ER) | payer OTHER ==
[~2021-06-06] VITALS: Ht 160 cm; Wt 54.4 kg
== END 2021-06-06 17:25 | disposition home or self-care (01) ==
LOC: ER 16:04
DX: F03.90 Unspecified dementia, unspecified severity, without behavioral disturbance, psychotic disturbance, mood disturbance, and anxiety (principal); R53.83 Other fatigue; E03.9 Hypothyroidism, unspecified; Z79.890 Hormone replacement therapy; Z79.899 Other long term (current) drug therapy
CPT/HCPCS: 99285

== ENCOUNTER → 2021-06-10 | Outpatient (CLI) | payer OTHER | LOC: LAB SHORT 13:09 → LAB 13:09 | DX: Z20.822 Contact with and (suspected) exposure to COVID-19 (principal) | CPT/HCPCS: U0003 ==

== ENCOUNTER 2021-06-15 21:34 | Emergency (ER) | payer OTHER ==
[~2021-06-15] VITALS: Ht 157.5 cm; Wt 45.4 kg
== END 2021-06-15 22:42 | disposition home or self-care (01) ==
LOC: ER 21:34
DX: R41.82 Altered mental status, unspecified (principal); E03.9 Hypothyroidism, unspecified; Z79.899 Other long term (current) drug therapy
CPT/HCPCS: 93005; 93010; 99283-25

== ENCOUNTER → 2021-07-05 | Outpatient (CLI) | payer OTHER ==
[2021-07-07 16:32] LABS: CORONAVIRUS (COVID19) CSH-NRL Negative (Negative)
== END | disposition home or self-care (01) ==
LOC: LAB SHORT 08:00 → LAB 08:00
PROVIDERS: Hospitalist
DX: Z20.822 Contact with and (suspected) exposure to COVID-19 (principal)
CPT/HCPCS: U0003

== ENCOUNTER → 2021-07-08 | Outpatient (CLI) | payer OTHER | END | disposition home or self-care (01) | LOC: LAB SHORT 14:58 | DX: Z20.822 Contact with and (suspected) exposure to COVID-19 (principal) | CPT/HCPCS: U0003 ==

== ENCOUNTER 2021-09-06 01:45 | Emergency (ER) | payer OTHER ==
[~2021-09-06] VITALS: Ht 165.1 cm; Wt 49.9 kg
== END 2021-09-06 04:18 ==
LOC: ER 01:45
DX: F03.90 Unspecified dementia, unspecified severity, without behavioral disturbance, psychotic disturbance, mood disturbance, and anxiety (principal); W06.XXXA Fall from bed, initial encounter; Z79.899 Other long term (current) drug therapy; E03.9 Hypothyroidism, unspecified
CPT/HCPCS: 70450; 72125; 72192

== ENCOUNTER 2021-12-07 14:33 | Emergency (ER) | payer OTHER ==
[~2021-12-07] VITALS: Ht 160 cm; Wt 54.4 kg
[2021-12-07 15:16] LABS: Source, Urine Straight Cath
[2021-12-07 15:46] LABS: BASOPHILS ABSOLUTE AUTO 0.04 K/mm3 (0.00-0.23); BASOPHILS PERCENT AUTO 1 % (0-2); EOSINOPHILS ABSOLUTE AUTO 0.01 K/mm3 (0.00-0.68); EOSINOPHILS PERCENT AUTO 0 % (0-6); Hematocrit 43.8 % (33.0-51.0); Hemoglobin 13.9 g/dL (11.5-16.0); IMMATURE GRAN ABSOLUTE AUTO 0.01 K/mm3 (0.00-0.10); IMMATURE GRAN PERCENT AUTO 0 % (0-1); LYMPHOCYTES ABSOLUTE AUTO 1.86 K/mm3 (0.84-5.20); LYMPHOCYTES PERCENT AUTO 25 % (21-46); MONOCYTES ABSOLUTE AUTO 0.93 K/mm3 (0.16-1.47); MONOCYTES PERCENT AUTO 13 % (4-13); Mean Corpuscular HGB 31.2 pg (26.0-34.0); Mean Corpuscular HGB Conc 31.7 g/dL (31.5-36.5); Mean Corpuscular Volume 98 fL (80-100); Mean Platelet Volume 11.9 fL (9.1-12.4); NEUTROPHILS ABSOLUTE AUTO 4.47 K/mm3 (1.96-9.15); NEUTROPHILS PERCENT AUTO 61 % (41-73); Platelet Count 225 K/mm3 (150-400); RDW Coefficient Variation 13.2 % (11.7-14.2); RDW Standard Deviation 47.2 fL (35.1-46.3); Red Blood Cell Count 4.45 M/mm3 (3.80-5.20); White Blood Cell Count 7.32 K/mm3 (4.00-11.30)
[2021-12-07 15:47] LABS: Alanine Aminotransfer (ALT/SGP 48 U/L (12-78); Albumin, Blood 2.8 g/dL (3.4-5.0); Albumin/Globulin Ratio 0.6 (0.8-1.8); Alk Phos 131 U/L (50-136); Anion Gap 4 mmol/L (6-16); Aspartate Aminotrans (AST/SGOT 52 U/L (12-37); Blood Urea Nitrogen 21 mg/dL (8-24); Bun/Creatinine Ratio 42.5 (12.0-20.0); CO2, Blood 31 mmol/L (21-32); Calcium, Blood 8.9 mg/dL (8.5-10.1); Chloride, Blood 104 mmol/L (98-108); Creatinine, Blood 0.49 mg/dL (0.40-1.00); Globulin, Blood 4.9 g/dL (2.2-4.0); Glomerular Filtration Rate >60 (60-); Glucose, Blood 97 mg/dL (70-99); Potassium, Blood 5.2 mmol/L (3.5-5.5); Sodium, Blood 139 mmol/L (136-145); Total Protein, Blood 7.7 g/dL (6.4-8.2)
[2021-12-07 15:57] LABS: Influenza A, PCR NEGATIVE (NEGATIVE); Influenza B, PCR NEGATIVE (NEGATIVE); Resp Syncytial Virus, PCR NEGATIVE (NEGATIVE); SARS-Cov-2 (COVID-19) PCR, MMC NEGATIVE (NEGATIVE)
[2021-12-07 16:18] LABS: Bilirubin, Urine Neg (Neg); Blood, Urine 1+ (Neg); Color, Urine Amber (P-Yellow); Glucose Qualitative, Urine Neg (Neg); Ketones, Urine 1+ (Neg); Leukocyte Esterase, Urine Neg (Neg); Nitrite, Urine Neg (Neg); Protein, Urine 2+ (Neg); Specific Gravity, Urine 1.015 (1.003-1.022); Urobilinogen, Urine 2+ (Normal)
[2021-12-07 16:33] LABS: Appearance, Urine Hazy (Clear)
[2021-12-07 16:36] LABS: Bacteria Mod /hpf; Mucus Mod (0-Heavy); Squamous Epithelial Cells Not Seen /hpf (Few); White Blood Cells, Urine 0-2 /hpf (0-5)
[2021-12-07 17:17] LABS: Triiodothyronine, Free 1.24 pg/mL (2.18-3.98)
== END 2021-12-07 18:12 | disposition home or self-care (01) ==
LOC: ER 14:33
PROVIDERS: Emergency Medicine
DX: E03.9 Hypothyroidism, unspecified (principal); Z79.899 Other long term (current) drug therapy; Z20.822 Contact with and (suspected) exposure to COVID-19
CPT/HCPCS: 0241U; 36415; 70450; 80053; 81001; 82947; 84439; 84443; 84481; 85025; 87086; 93005; 93010; 99284-25

== ENCOUNTER → 2022-03-09 | Outpatient (CLI) | payer OTHER ==
[2022-03-09 15:36] LABS: Free Thyroxine 1.08 ng/dL (0.70-1.60)
[2022-03-09 15:38] LABS: Thyroid Stimulating Hormone 7.26 uIU/mL (0.360-4.800); Triiodothyronine, Free 1.56 pg/mL (2.18-3.98)
== END | disposition home or self-care (01) ==
LOC: LAB SHORT 10:40
PROVIDERS: Hospitalist
DX: E03.9 Hypothyroidism, unspecified (principal)
CPT/HCPCS: 84439; 84443; 84481

== ENCOUNTER → 2023-02-27 | Outpatient (CLI) | payer OTHER ==
[2023-02-27 22:40] LABS: Free Thyroxine 0.66 ng/dL (0.70-1.60); Thyroid Stimulating Hormone 32.7 uIU/mL (0.360-4.800); Triiodothyronine, Free 1.72 pg/mL (2.18-3.98)
== END | disposition home or self-care (01) ==
LOC: LAB 12:00 → LAB SHORT 12:00
PROVIDERS: Hospitalist
DX: E03.9 Hypothyroidism, unspecified (principal)
CPT/HCPCS: 84439; 84443; 84481

== ENCOUNTER 2023-11-25 11:45 | Inpatient (IN) | payer OTHER ==
[~2023-11-25] VITALS: Ht 162.6 cm; Wt 44.4 kg
[~2023-11-25 11:45] MED LIST changes: +LEVSOD150 PO; -Seroquel Xr50 MG PO
[2023-11-25 12:34] LABS: Base Excess Venous 5.7 mmol/L; Bicarbonate Venous 27.8 mmol/L (24.0-30.0); PCO2 Venous 56.3 mmHg (38-42); pH Blood Venous 7.35 (7.34-7.37)
[2023-11-25 12:47] LABS: BASOPHILS ABSOLUTE AUTO 0.05 K/mm3 (0.00-0.23); BASOPHILS PERCENT AUTO 0 % (0-2); EOSINOPHILS ABSOLUTE AUTO 0.02 K/mm3 (0.00-0.68); EOSINOPHILS PERCENT AUTO 0 % (0-6); Hematocrit 46.8 % (33.0-51.0); Hemoglobin 15.1 g/dL (11.5-16.0); IMMATURE GRAN ABSOLUTE AUTO 0.05 K/mm3 (0.00-0.10); IMMATURE GRAN PERCENT AUTO 0 % (0-1); LYMPHOCYTES ABSOLUTE AUTO 0.94 K/mm3 (0.84-5.20); LYMPHOCYTES PERCENT AUTO 7 % (21-46); MONOCYTES ABSOLUTE AUTO 2.32 K/mm3 (0.16-1.47); MONOCYTES PERCENT AUTO 17 % (4-13); Mean Corpuscular HGB 30.7 pg (26.0-34.0); Mean Corpuscular HGB Conc 32.3 g/dL (31.5-36.5); Mean Corpuscular Volume 95 fL (80-100); Mean Platelet Volume 11.6 fL (9.1-12.4); NEUTROPHILS ABSOLUTE AUTO 10.12 K/mm3 (1.96-9.15); NEUTROPHILS PERCENT AUTO 75 % (41-73); Platelet Count 197 K/mm3 (150-400); RDW Standard Deviation 46.1 fL (35.1-46.3); Red Blood Cell Count 4.92 M/mm3 (3.80-5.20)
[2023-11-25 12:52] LABS: Albumin, Blood 2.8 g/dL (3.4-5.0); Albumin/Globulin Ratio 0.6 (0.8-1.8); Bilirubin, Total 1.2 mg/dL (0.1-1.0); Bun/Creatinine Ratio 50.4 (12.0-20.0); Calcium, Blood 9.1 mg/dL (8.5-10.1); Creatinine, Blood 0.5 mg/dL (0.40-1.00); Globulin, Blood 4.9 g/dL (2.2-4.0); Potassium, Blood 4.3 mmol/L (3.5-5.5); Total Protein, Blood 7.7 g/dL (6.4-8.2)
[2023-11-25 13:08] LABS: Adenovirus Not Detected (NOT DETECT); Bordetella pertussis Not Detected (NOT DETECT); Chlamydophila pneumoniae Not Detected (NOT DETECT); Coronavirus 229E Not Detected (NOT DETECT); Coronavirus HKU1 Not Detected (NOT DETECT); Coronavirus NL63 Not Detected (NOT DETECT); Coronavirus OC43 Not Detected (NOT DETECT); Human Metapneumovirus Not Detected (NOT DETECT); Human Rhinovirus/Enterovirus Not Detected (NOT DETECT); Influenza A/2009-H1 Not Detected (NOT DETECT); Influenza A/H1 Not Detected (NOT DETECT); Influenza A/H3 Not Detected (NOT DETECT); Influenza B Not Detected (NOT DETECT); Mycoplasma pneumoniae Not Detected (NOT DETECT); Parainfluenza Virus 1 Not Detected (NOT DETECT); Parainfluenza Virus 2 Not Detected (NOT DETECT); Parainfluenza Virus 3 Not Detected (NOT DETECT); Parainfluenza Virus 4 Not Detected (NOT DETECT); Respiratory Syncytial Virus Not Detected (NOT DETECT); SARS-Cov-2 (COVID-19), BioFire Not Detected (NOT DETECT)
[2023-11-25] MEDS ORDERED: CefTRIAXone Sodium 1,000 MG in NS 100 ML IV ONE (14:30)
[2023-11-25] MEDS ORDERED: FLU VACC QS2023-24(6MOS UP)/PF 60 MCG/0.5 ML SYRINGE IM SCH (15:55)
[2023-11-25] MEDS ORDERED: Lactated Ringer's 1,000 ML IV SCH (16:00)
[2023-11-25] MEDS ORDERED: Acetaminophen 650 MG Supp PR PRN (16:15)
[2023-11-25] MEDS ORDERED: Azithromycin 500 MG in NS 250 ML IV SCH (16:30)
--- NOTE | 2023-11-25 17:44 | NUR ---
Goals of Care conversation with daughter This PC RN spoke with pt's daughter, Anne-Marie by phone this afternoon. Exhaustive review of Roseline's previously completed (08/11/2013) POLST that reflects DNR/COOLER CONVEYOR LOADER. Anne-Marie verbalized understanding pt's choice of DNR/COOLER CONVEYOR LOADER. However, Anne-Marie request treatment at this time. She repeated back that pt's oxygen demand is now needing BiPap for support, she will need cont. pulse oximetry and IV Abx. Anne-Marie is standing by her decision to override POLST for full care without CPR. Anne-Marie is agreeable to reevaluating pt's condition and any response to treatment tomorrow afternoon. If Roseline does not improve in 24 hrs Anne-Marie is agreeable to revisit care goals with possibility of transitioning pt to Comfort Measures Only. Reviewed this case with Leann RN, Whitney. Whitney RN to review above stated information with Leann Director. Dr. Garrett notified with result of discussion with pt's daughter, Anne-Marie. This PC RN will check in with pt and dtr tomorrow afternoon.
[2023-11-25] MEDS ORDERED: MELATONIN5 M1 PO (18:01)
[2023-11-25] MEDS ORDERED: ACET325 PO (18:03)
[2023-11-25] MEDS ORDERED: Hydrocortiso453.6 G1 TOP (18:05)
[2023-11-25] MEDS ORDERED: NYAMYC15 G1 TOP (18:06)
--- NOTE | 2023-11-25 18:39 | NUR ---
PT ARRIVES TO ROOM PCU 10 FROM ER VIA GURNEY WITH BIPAP IN PLACE. PT SLID OVER FROM GURNEY TO BED BY STAFF WITH SLIDER SHEET. PTs SKIN IS INSPECTED WHILE CHANGING LINENS, NO ULCERS, REDNESS OR AREAS OF CONCERN AT THIS TIME. PTs SWEATER HAD TO BE CUT OFF STAFF COULD NOT REMOVE IT D/T PTs CONTRACTURES. PT IS COVERED WITH A WARM BLANKET AND POSITIONED FOR COMFORT AND SAFETY. PT IS NON-VERBAL AND UNRESPONSIVE ON ARRIVAL. SEE DOCUMENTED VS AND ASSESSMENT. BED IS LOCKED AND IN LOWEST POSITION. BED ALARM IS ON. CALL LIGHT IS IN REACH AND PT IS POSITIONED IN A ROOM DIRECTLY ACROSS FROM THE NURSES STATION WITH DIRECT LINE OF SIGHT. WILL CONTINUE TO MONITOR AND GIVE REPORT TO NOC SHIFT RN. PT HAS POLST ON CHART INDICATING DNR/DNI AND COMFORT MEASURES ONLY.
[2023-11-25 19:53] VITALS: BP 106/68
[2023-11-26 00:21] VITALS: BP 101/68
[2023-11-26 03:58] VITALS: BP 102/53
[2023-11-26 05:53] LABS: Hematocrit 43.8 % (33.0-51.0); Mean Corpuscular Volume 97 fL (80-100); Mean Platelet Volume 11.4 fL (9.1-12.4); Platelet Count 193 K/mm3 (150-400); RDW Standard Deviation 46.8 fL (35.1-46.3); Red Blood Cell Count 4.52 M/mm3 (3.80-5.20); White Blood Cell Count 14.56 K/mm3 (4.00-11.30)
[2023-11-26] MEDS ORDERED: Pantoprazole Sodium 40 MG Injection IV SCH (06:00)
--- NOTE | 2023-11-26 06:11 | NUR ---
End of shift note. Pt was on BiPAP for until 0200. Pt was pulling/ tugging at the lines. Staff trialed her on a nasal cannula and she has been sating 94% on 4-5L. Resp rate has improved since removing the BiPAP as well. Pt overall looks more comfortable. Occasional dry cough. Pt continues to only be responsive to stimuli. Does not follow commands or open eyes. No signs of pain. Right eye does seem to have occasional yellow discharge, no sign of pain. Pt has been incontinent, brief changed with repositioning. Oral care provided Q4, tongue is discolored but has been improving each oral care. Pt is unable to make needs known. Bed alarm is active. Frequent staff rounding.
[2023-11-26 06:44] LABS: Magnesium, Blood 2.1 mg/dL (1.6-2.4)
[2023-11-26 06:55] LABS: Albumin, Blood 2.4 g/dL (3.4-5.0); Anion Gap Unable to Calculate mmol/L (6-16); Blood Urea Nitrogen 26 mg/dL (8-24); Bun/Creatinine Ratio 48.5 (12.0-20.0); CO2, Blood 33 mmol/L (21-32); Calcium, Blood 9.1 mg/dL (8.5-10.1); Chloride, Blood 109 mmol/L (98-108); Creatinine, Blood 0.54 mg/dL (0.40-1.00); Glomerular Filtration Rate 88 (60-); Glucose, Blood 131 mg/dL (70-99); Phosphorus, Blood 2.8 mg/dL (2.5-4.9); Potassium, Blood 4.1 mmol/L (3.5-5.5); Sodium, Blood 140 mmol/L (136-145)
--- NOTE | 2023-11-26 08:00 | NUR ---
INITIAL ASSESSMENT: Patient is resting with her eyes closed, she responds to painful stimuli- moving and pushing hands away. She is non-verbal at baseline, and BUE and BLE are contracted. She is not able to follow commands. She does not appear to be painful at this time. HRR. SR in the 80s, blood pressure is good. LS DIM and coarse T/O, she has a weak corarse NPC. BT+. She has an attends in place with urine and a smear of stool in it. Attends changed and patient repositioned from her left side to her right. She has some redness noted to her coccyx, mepilex placed. Oral care done. Patient appears to be comfortable at this time. Call light in reach. Bed alarm on for safety.
--- NOTE | 2023-11-26 10:00 | NUR ---
Update: Dr. Garrett has been through to see the patient. Speech therapy has been to see the patient she has been advanced from NPO status to puree diet with thin liquids via spoon. She is resting comfortably at this time.
--- NOTE | 2023-11-26 10:05 | NUR ---
Met with Primary RN, jd update on resp status t/o last night. Primary RN reports pt pulled Bi-Pap off by pt on NOC shift. Tolerated NC and currently on RA. Additional report from primary RN, only thing pt has said is owe. This PC RN phoned [facility] RN, Whitney with update and inquire about any chronic pain. Whitney. RN reports chronic arthritic pain and occational prn norco use. Dtr reports, pt has occational R hip pain s/p R hip repair. Volteren cream used in the past. Dtr, Anne-Marie would like to continue with treatment. She is agreeable to Goals of Care meeting this afternoon, she will come in around 1600. Dr. Garrett notified of above stated info. He is agreeable to Speech Eval and aspercream for R hip. Dr. Garrett to place orders. Primary RN advised to administer Tylenol suppository.
[2023-11-26] MEDS ORDERED: Enoxaparin 40 MG/0.4 ML SYR SC SCH (11:00)
[2023-11-26] MEDS ORDERED: Heparin Sodium,Porcine 5,000 UNIT/0.5 ML SDV SC SCH (11:00)
[2023-11-26] MEDS ORDERED: CefTRIAXone Sodium 1,000 MG in NS 50 ML IV SCH (12:00)
--- NOTE | 2023-11-26 12:00 | NUR ---
Update: The patient has been desaturating frequently oxygen is flucutuating from 2-8L, pt has very poor secretion clearance and is requiring frequent OT suctioning. She is fighting staff on suctioning and keeping her oxygen on. Call placed to Daughter to see discuss plan of care and patients response to care. Daughter elects to make the patient comfortable, call placed to update Palliative care RN, see new orders.
[2023-11-26] MEDS ORDERED: Atropine Sulfate 1% Opth Soln 2ML BTL SL PRN (13:05)
[2023-11-26] MEDS ORDERED: Morphine Sulfate 20 MG/1ML 1 ML Oral Syringe SL PRN (13:05)
[2023-11-26] MEDS ORDERED: Haloperidol Lactate 2 MG/ML Conc 1ML Dose PO PRN (13:05)
[2023-11-26] MEDS ORDERED: Scopolamine Hydrobromide Patch TOP PRN (13:05)
[2023-11-26] MEDS ORDERED: LORazepam 0.5 MG Tab PO PRN (13:25)
--- NOTE | 2023-11-26 13:29 | NUR ---
Status Change To Comfort Care Primary RN reports pt is needing more respiratory support, weak cough and no gag reflex. Primary RN phoned pt's dtr, Anne-Marie with update. This PC RN spoke with Anne-Marie by phone after she spoke with Leann's director Xena. Anne-Marie feels like she has given her mom a chance to bounce back. She is agreeable to transitioning pt to comfort care. This PC RN spoke with Dr. Garrett, obtained orders and placed accordingly.
--- NOTE | 2023-11-26 17:09 | NUR ---
Spiritual care visit conducted. PAtient is lying in bed and alert. Her family is not present. Patient does not speak but nods (only for two questions on the rest there was no response. She looked at me and nodded "yes" when asked if I could pray for her, which I gladly provided immediately. And then again at the conclusion of the prayer when I asked if the prayer was okay, she nodded again. Other than that, she she did not engage eye contact and did not answer. I will continue to remain available to patient and family.
--- NOTE | 2023-11-26 17:49 | NUR ---
Summary: Patient has been non-verbal and not able to follow commands T/O the shift. She is weak and total care. No C/O pain. HRR, VSS. LS DIM and coarse, she has a weak NPC. She was suctioned several times early today and this afternoon, she has thick white secretions. BT+, she had a few small BMs and some smearing. She has been incontinent T/O the shift with attends in place. She was transitioned to comfort care this afternoon after fighting staff while attempting to suction and she kept pulling oxygen off. Patient is now without oxygen with saturations in the mid to low 80s, her resp effort is not labored. She has been resting comfortably, will report to oncoming RN.
--- NOTE | 2023-11-26 20:14 | NUR ---
ASSUMPTION OF CARE: AFTER RECEIVING REPORT FROM IVANIA BARROSO, THIS RN ASSUMED CARE AT APPROX 1915. PATIENT IS RESPONSIVE TO STIMULI, UNABLE TO FOLLOW COMMANDS OR OPEN EYES. PATIENT DOES OCCASIONAL NOD HER HEAD. SHALLOW, TACHYPNEIC RESPIRATIONS, RR 26-30. SATs 80-84% ON ROOM AIR. 2L VIA NASAL CANNULA APPLIED FOR COMFORT, SATs 88-90%. OCCASIONAL WEAK, NONPRODUCTIVE COUGH. MEDICATED PER EMAR WITH ROXANOL AND ATROPINE. SCHEDULED ASPERCREME APPLIED TO R HIP. PATIENT INCONTINENT, BRIEF CHANGED WITH REPOSITIONING. ORAL CARE PROVIDED. PATIENT DOES APPEAR MUCH MORE COMFORTABLE. PATIENT IS UNABLE TO MAKE HER NEEDS KNOWN, BED ALARM IN PLACE AND FREQUENT STAFF ROUNDING.
[2023-11-26] MEDS ORDERED: TROLAMINE SALICYLATE 10% CREAM 141 GM TUBE TOP SCH (21:00)
--- NOTE | 2023-11-26 22:34 | NUR ---
REPORT GIVEN TO DOV BARROSO TO ASSUME CARE
--- NOTE | 2023-11-26 23:04 | NUR ---
ASSUMPTION OF CARE RECEIVED INTO CARE, REPORT GIVEN BY DHARMESH LAFLEUR. PT LYING IN BED WITH EYES CLOSED, TACHYPNEIC BUT RESPS NOT LABOROUS. DOES NOT APPEAR TO BE IN ANY DISTRESS. NO CONCERNS AT THIS TIME, PT APPEARS TO BE COMFORTABLE.
--- NOTE | 2023-11-27 06:22 | NUR ---
SHIFT SUMMARY SLEPT WELL THROUGHOUT NIGHT, ROXANOL AND ATROPINE X1. GIVEN PER EMAR. COMFORT CARE. ON 2L PIZZA HUT TEAM MEMBER FOR COMFORT. TURNED Q2H. NO CONCERNS. REMAINS LYING IN BED, IN NO DISTRESS.
--- NOTE | 2023-11-27 16:24 | NUR ---
Spiritual care visit conducted. Patient is lying in bed and has her eyes open. She does not answer my questions except to say, "Yes" to prayer, which I gladly supply. I spend more time today with patient providing a calming presence and encouragement. Patient appears more relaxed after the visit.
--- NOTE | 2023-11-27 17:17 | NUR ---
END OF SHIFT PT MEDICAL, COMFORT CARE STATUS. PT SLEEPING MAJORITY OF SHIFT, OPENS EYES SPONTANEOUSLY AT TIMES. PT NONVERBAL, UNABLE TO FOLLOW INSTRUCTIONS. PT NOT SHOWING SIGNS OF PAIN/DISCOMFORT OR DISTRESS. PT DAUGHTER AT BEDSIDE, STATING "SHE LOOKS LIKE SHE'S BREATHING MORE COMFORTABLY TODAY." PT INCONTINENT, WEARING ATTENDS. STAFF PROVIDING REPOSITIONING & PRN WILLIAM CARE/ATTENDS CHANGES.
--- NOTE | 2023-11-27 23:35 | NUR ---
PT TRANSFER FROM PCU 10 PT ARRIVED FROM PCU, LEFT IN SAME BED TO ENSURE COMFORT. PT ON PURWICK UPON ARRIVAL. PT IS NONRESPONSIVE AND NONVERBAL. SHE DID OPEN HER EYES WHEN MOVED INTO THE NEW ROOM BUT THEN FELL BACK TO SLEEP. PER REPORT PT WAS ACCOMPANIED BY HER DAUGHTER DURING THE DAY AND SHE WILL RETURN TOMORROW. PT IS NOT SHOWING ANY S/S OF PAIN OR DISCOMFORT AND SEEMS TO BE RESTING COMFORTABLY. 11/27/23 UMER ORTEGA RN
[2023-11-28] MEDS ORDERED: MORP20L SL (10:23)
[2023-11-28] MEDS ORDERED: LORA.5 PO (10:23)
--- NOTE | 2023-11-28 12:25 | NUR ---
EOL Support Pt lying supine with bilat legs curled to the left. BLE cool to the touch. Bilat hands very warm. Right hand cyanotic. Guppy breathing. Crakles audible to back of throat. Update provided to primary RN, Mo. Mo RN to administer Roxanol, Tylenol suppository and antimuscarinic medications. Plan is for pt to d/c home ([facility]) around 1500 today.
--- NOTE | 2023-11-28 16:14 | NUR ---
Continuous Improvement Black Belt notified this PC RN of pt's passing. This PC RN notified Dtr, Anne-Marie @ [phone] by phone of Roseline's passing. Anne-Marie is coming in to see Roseline prior to being taken in to care by [facility]. Whitney, RN at [facility] notified by phone of pt's passing. lap winding machine operatorMelia notified of home choice.
--- NOTE | 2023-11-28 16:35 | NUR ---
"Spiritual Care| EOL Nurse request. Pt. had passed. No family were present. Prayed a blessing over the Pt. then got called away to a JOON CASTAÑEDA in another unit. Updated Palliative Care nurse."
--- NOTE | 2023-11-28 16:40 | NUR ---
PT PASSED AT 1630 THE WHEN TRANSPORT SHOWED TO TRANSFER THE PT SHE WAS FOUND . DHARMESH Abdi WAS CALLED TO THE ROOM AND CONCONFIRMED THE . ELECTRIC GOLF CART REPAIRER, . NURSING ASPHALT SURFACE HEATER OPERATOR AND PALLIATIVE CARE RN WERE NOTIFIED. PALLIATIVE CARE RN NOTIFIED THE PTS DAUGHTER. THE PATIENTS DAUGHTER CAME TO SEE HER. THE PTS BELONGINGS WERE RELEASED TO THE DAUGHTER
== END 2023-11-28 16:03 | DRG 177 ==
LOC: ER 11:45 → PCU 15:54 → MEDS 15:54 → PCU 17:44 → MEDS 11-27 22:56 → ENPENDDIS 11-28 10:48 → MEDS 11-28 16:03
PROVIDERS: Physician Assistant; ADMIT Internal Medicine
DX: J69.0 Pneumonitis due to inhalation of food and vomit (principal); J96.01 Acute respiratory failure with hypoxia; Z66 Do not resuscitate; Z51.5 Encounter for palliative care; G30.9 Alzheimer's disease, unspecified; F02.80 Dementia in other diseases classified elsewhere, unspecified severity, without behavioral disturbance, psychotic disturbance, mood disturbance, and anxiety; E03.9 Hypothyroidism, unspecified; M19.90 Unspecified osteoarthritis, unspecified site; Z11.52 Encounter for screening for COVID-19
CPT/HCPCS: 0202U; 36415; 71045; 80053; 80069; 82803; 83735; 84145; 85025; 85027; 92610; 93005; 93010; 94660; 94762; 96365; 96375; 99285-25; A9270; C9113; J0456; J0696; J7050; J7120